=== PATIENT | female | born 1960 | race Caucasian/White ===

== ENCOUNTER → 2023-05-19 | Outpatient (CLI) | payer MEDICAID ==
--- NOTE | 2023-05-19 16:20 | XR ---
EXAMINATION TYPE: XR ankle complete 3 views LT DATE OF EXAM: 05/19/2023 Comparison: None Clinical History: 63-year-old female [id number] LT ANKLE PAIN Findings: Ankle mortise is congruent with preservation of the distal tibiofibular overlap. Talar dome is intact . No acute fracture, subluxation, or dislocation. Impression: No acute osseous abnormality seen.
== END | disposition home or self-care (01) ==
LOC: RADXRYALE 15:26
PROVIDERS: ATTEND Internal Medicine
DX: M25.572 Pain in left ankle and joints of left foot (principal)